=== PATIENT | male | born 1950 | race African-American/Black ===

== ENCOUNTER 2019-09-23 06:00 | Inpatient (IN) ==
[2019-09-23] MEDS ORDERED: DEXTROSE 50% 25 GM/50 ML VIAL IV PRN (10:36)
[2019-09-23] MEDS ORDERED: GLUCAGON 1 MG VIAL IM PRN (10:36)
[2019-09-23 11:26] LABS: Basophils % 0.5 % (0.0-0.8)
[2019-09-23 11:36] LABS: ABG HCO3 24.3 MMOL/L (20-26); ABG Oxygen Saturation 90.2 % (95-100); ABG PCO2 44.6 MM HG (35-48); ABG PH 7.369 (7.35-7.45); ABG PO2 61.5 MM HG (80-95); ABG TCO2 22.2 MMOL/L (23-27)
[2019-09-23 11:40] LABS: Eosinophils # 0.5 10*3/uL (0.0-0.87); Hemoglobin 14.4 GM/DL (14.0-18.0); Immature Granulocytes % 0.2 %; Immature Granulocytes Absolute 0.01 #; Lymphocytes # 1.2 10*3/uL (1.4-4.0); Lymphocytes % 21.9 % (21.2-54.2); Mean Corpuscular HGB Conc 30.6 GM/DL (32-36); Mean Corpuscular Volume 89.4 FL (87-102); Mean Platelet Volume 11.4 FL (9.6-12.0); Monocytes % 8.1 % (1.7-12.7); Neutrophils % 60.3 % (38.7-73.9); Platelet Count 197 T/CUMM (130-400); Red Blood Count 5.26 MC/CUMM (3.8-5.5); White Blood Count 5.6 T/CUMM (4-12)
[2019-09-23 11:49] LABS: Albumin 3.3 G/DL (3.4-5.0); Bilirubin,Total 0.4 MG/DL (0.2-1.0); Calcium 8.5 MG/DL (8.5-10.1); Osmolality,Calculated 283.3 MOS/KG (273-304); Total Protein 7.9 G/DL (6.4-8.3)
[2019-09-23] MEDS: CHLORHEXIDINE 4% SOLN 118 ML BOTTLE TOP SCH ×2 (15:42→20:45)
[2019-09-23] MEDS: CHLORHEXIDINE 0.12% ORAL RINSE 60 ML BOTTLE SWISH/SPIT SCH (21:39)
[2019-09-24] MEDS ORDERED: PAPAVERINE 60 MG/2 ML VIAL ONE (04:23)
[2019-09-24] MEDS ORDERED: VANCOMYCIN 1,000 MG VIAL ONE (04:24)
[2019-09-24] MEDS ORDERED: VANCOMYCIN 500 MG VIAL ONE (04:24)
[2019-09-24] MEDS ORDERED: CEFUROXIME INJ 1,500 MG in SYRINGE 1 EACH IV ONE ×2 (05:30→06:00)
[2019-09-24] MEDS ORDERED: NITROPRUSSIDE 50 MG/2 ML VIAL ONE (07:23)
[2019-09-24] MEDS ORDERED: CALCIUM CHLORIDE 1,000 MG/10 ML SYRINGE IV ONE (07:23)
[2019-09-24] MEDS ORDERED: PHENYLEPHRINE DRIP 40 MG/250 ML PREMIX IV ONE (07:23)
[2019-09-24] MEDS ORDERED: SODIUM BICARBONATE 50 MEQ/50 ML VIAL IV ONE ×2 (07:23→11:39)
[2019-09-24] MEDS ORDERED: POTASSIUM CHLORIDE RIDER 100 ML IV ONE (07:24)
[2019-09-24 07:36] LABS: ABG Base Excess 1.4 MMOL/L (-2.5-2.5); ABG HCO3 25.7 MMOL/L (20-26); ABG Oxygen Saturation 99.8 % (95-100); ABG PCO2 45.5 MM HG (35-48); ABG PH 7.381 (7.35-7.45); ABG TCO2 23.5 MMOL/L (23-27); Glucose Heart Surgery 107 MG/DL (74-106); Hematocrit Heart Surgery 41.1 PERCENT (42-52); Hemoglobin Heart Surgery 13.4 G/DL (14.0-18.0); Ionized Calcium Arterial 1.13 MMOL/L (1.21-1.46); PCO2 Patient Temp Arterial 45.5 MMHG; PH Patient Temp Arterial 7.381; Patient Temperature 37 CELCIUS; Potassium Heart/CVR 4.1 MMOL/L (3.5-5.1); Sodium Heart/CVR 137 MMOL/L (135-145)
[2019-09-24 08:16] LABS: Apearance,Urine CLEAR (Clear); Bacteria,Urine Occasional /HPF (Few); Bilirubin,Urine Negative (Negative); Blood, Urine Negative (Negative); Glucose,Urine (UA) Negative (Negative); Ketones,Urine Negative (Negative); Mucus,Urine Occasional /LPF (Occasional); Nitrite,Urine Negative (Negative); Protein,Urine Negative; RBC,Urine <1 /HPF (0-4); Urine Color Yellow (Yellow); Urine Specific Gravity 1.015 (1.001-1.035); Urine Urobilinogen < 2.0 EU/DL (0.2-1.0); WBC,Urine <1 /HPF (0-6)
[2019-09-24 09:22] LABS: PH Patient Temp Venous 7.521; Potassium Heart/CVR 4.1 MMOL/L (3.5-5.1); VBG Base Excess 2.3 MEQ/L (0-4); VBG HCO3 26.3 MEQ/L (24-28); VBG Oxygen Saturation 86.8 %; VBG PCO2 34.7 MMHG (41-51); VBG PH 7.476; VBG PO2 47.9 MMHG (17-40)
[2019-09-24] MEDS ORDERED: HEPARIN/NACL 0.9% 2 UNITS/ML 500 ML IV ONE (09:54)
[2019-09-24] MEDS ORDERED: PHENYLEPHRINE DRIP 20 MG/250 ML PREMIX IV ONE (09:54)
[2019-09-24] MEDS ORDERED: NITROGLYCERIN DRIP 50 MG/250 ML BOTTLE IV ONE (09:54)
[2019-09-24 09:55] LABS: Hemoglobin Heart Surgery 10.7 G/DL (14.0-18.0); PCO2 Patient Temp Venous 29.8 MM HG; PH Patient Temp Venous 7.518; PO2 Patient Temp Venous 40.2 MM HG; Potassium Heart/CVR 4.4 MMOL/L (3.5-5.1); VBG Base Excess 1.9 MEQ/L (0-4); VBG Oxygen Saturation 89.2 %; VBG PCO2 36.2 MMHG (41-51); VBG PH 7.458; VBG PO2 52.9 MMHG (17-40)
[2019-09-24 10:26] LABS: Hematocrit Heart Surgery 34.6 PERCENT (42-52); Hemoglobin Heart Surgery 11.2 G/DL (14.0-18.0); PCO2 Patient Temp Venous 30.3 MM HG; PH Patient Temp Venous 7.524; PO2 Patient Temp Venous 42.6 MM HG; Potassium Heart/CVR 4.4 MMOL/L (3.5-5.1); VBG Base Excess 2.8 MEQ/L (0-4); VBG HCO3 26.7 MEQ/L (24-28); VBG Oxygen Saturation 90.7 %; VBG PCO2 36.8 MMHG (41-51); VBG PH 7.464; VBG PO2 55.9 MMHG (17-40)
[2019-09-24 10:55] LABS: Hematocrit Heart Surgery 34.8 PERCENT (42-52); Hemoglobin Heart Surgery 11.3 G/DL (14.0-18.0); PCO2 Patient Temp Venous 36.5 MM HG; PH Patient Temp Venous 7.455; PO2 Patient Temp Venous 45.6 MM HG; Potassium Heart/CVR 4.7 MMOL/L (3.5-5.1); VBG HCO3 25.9 MEQ/L (24-28); VBG Oxygen Saturation 82.9 %; VBG PCO2 36.5 MMHG (41-51); VBG PH 7.455; VBG PO2 45.6 MMHG (17-40)
[2019-09-24] MEDS: CHLORHEXIDINE 4% SOLN 118 ML BOTTLE TOP SCH (11:32)
[2019-09-24] MEDS: CHLORHEXIDINE 0.12% ORAL RINSE 60 ML BOTTLE SWISH/SPIT SCH ×2 (11:32→21:22)
[2019-09-24] MEDS ORDERED: MANNITOL 100 GM/500 ML BAG IV ONE (11:38)
[2019-09-24] MEDS ORDERED: PROTAMINE SULFATE 250 MG/25 ML VIAL IV ONE (11:39)
[2019-09-24] MEDS ORDERED: HEPARIN 10,000 UNIT/10 ML VIAL ONE (11:39)
[2019-09-24] MEDS ORDERED: FUROSEMIDE 20 MG/2 ML VIAL ONE (11:39)
[2019-09-24] MEDS ORDERED: MAGNESIUM SULFATE 5 GM/10 ML VIAL IV ONE (11:39)
[2019-09-24] MEDS ORDERED: methylPREDNISolone SOD SUC 1,000 MG/8 ML VIAL ONE (11:39)
[2019-09-24] MEDS ORDERED: ALBUMIN 25% 25 GM/100 ML VIAL IV ONE (11:39)
[2019-09-24] MEDS ORDERED: LIDOCAINE 2% 5 ML VIAL ONE (11:39)
[2019-09-24] MEDS ORDERED: DEXTROSE 5% KCL 20 MEQ 20 MEQ/1,000 ML BAG IV ONE (11:39)
[2019-09-24 11:41] LABS: ABG Base Excess 0.5 MMOL/L (-2.5-2.5); ABG HCO3 24.9 MMOL/L (20-26); ABG PCO2 35.7 MM HG (35-48); ABG TCO2 21.5 MMOL/L (23-27); Glucose Heart Surgery 149 MG/DL (74-106); Hematocrit Heart Surgery 35.5 PERCENT (42-52); Hemoglobin Heart Surgery 11.5 G/DL (14.0-18.0); Ionized Calcium Arterial 1.25 MMOL/L (1.21-1.46); PCO2 Patient Temp Arterial 35.7 MMHG; Patient Temperature 37 CELCIUS; Potassium Heart/CVR 3.7 MMOL/L (3.5-5.1); Sodium Heart/CVR 136 MMOL/L (135-145)
[2019-09-24] MEDS ORDERED: ACETAMINOPHEN 650 MG SUPP RECTAL PRN (12:39)
[2019-09-24] MEDS ORDERED: VECURONIUM 10 MG VIAL IV PRN ×2 (12:39)
[2019-09-24] MEDS ORDERED: INSULIN REGULAR DRIP 100 ML IV SCH (12:39)
[2019-09-24] MEDS ORDERED: MAGNESIUM SULF RIDER 4 GM in PREMIX 1 EACH IV PRN (12:39)
[2019-09-24] MEDS ORDERED: MORPHINE 10 MG/1 ML VIAL IV PRN (12:39)
[2019-09-24] MEDS ORDERED: NITROPRUSSIDE 100 MG in DEXTROSE 5% 250 ML IV PRN (12:39)
[2019-09-24] MEDS ORDERED: MIDAZOLAM 10 MG/2 ML VIAL IV PRN (12:39)
[2019-09-24] MEDS ORDERED: MIDAZOLAM 2 MG/2 ML VIAL IV PRN (12:39)
[2019-09-24] MEDS ORDERED: POTASSIUM CHLORIDE RIDER 10 MEQ in PREMIX 1 EACH IV PRN (12:39)
[2019-09-24] MEDS ORDERED: DEXTROSE 10% 250 ML BAG IV PRN ×2 (12:39)
[2019-09-24] MEDS ORDERED: CHLORHEXIDINE 4% SOLN 118 ML BOTTLE TOP PRN (12:39)
[2019-09-24] MEDS ORDERED: SODIUM CHLORIDE 0.45% 1,000 ML IV SCH ×2 (12:39)
[2019-09-24] MEDS ORDERED: ONDANSETRON 4 MG/2 ML VIAL IV PRN (12:39)
[2019-09-24] MEDS ORDERED: POTASSIUM CHLORIDE RIDER 20 MEQ in PREMIX 1 EACH IV PRN (12:39)
[2019-09-24] MEDS ORDERED: CALCIUM CHLORIDE 1,000 MG/10 ML SYRINGE IV PRN (12:39)
[2019-09-24] MEDS ORDERED: MAGNESIUM SULF RIDER 2 GM in PREMIX 1 EACH IV PRN (12:39)
[2019-09-24] MEDS ORDERED: INSULIN REGULAR 100 UNIT/ML IV ONE (12:39)
[2019-09-24] MEDS ORDERED: LACTATED RINGERS 250 ML IV PRN (12:39)
[2019-09-24] MEDS ORDERED: INSULIN REGULAR 100 UNIT/ML IV PRN (12:39)
[2019-09-24 12:51] LABS: ABG Base Excess 1.4 MMOL/L (-2.5-2.5); ABG HCO3 25.6 MMOL/L (20-26); ABG Oxygen Saturation 99.6 % (95-100); ABG PCO2 38.8 MM HG (35-48); ABG PH 7.428 (7.35-7.45); ABG TCO2 22.3 MMOL/L (23-27); Glucose Heart Surgery 128 MG/DL (74-106); Hematocrit Heart Surgery 40.1 PERCENT (42-52); Potassium Heart/CVR 3.9 MMOL/L (3.5-5.1)
[2019-09-24 12:52] LABS: Basophils # 0.1 10*3/uL (0.0-0.2); Basophils % 0.4 % (0.0-0.8); Eosinophils # 0.2 10*3/uL (0.0-0.87); Eosinophils % 1.5 % (0.00-10.9); Hematocrit 40.9 VOL% (42.0-52.0); Hemoglobin 12.8 GM/DL (14.0-18.0); Immature Granulocytes % 0.6 %; Immature Granulocytes Absolute 0.08 #; Lymphocytes # 1.5 10*3/uL (1.4-4.0); Lymphocytes % 11.9 % (21.2-54.2); Mean Corpuscular HGB Conc 31.3 GM/DL (32-36); Mean Corpuscular Volume 87.8 FL (87-102); Mean Platelet Volume 11.4 FL (9.6-12.0); Monocytes % 4.4 % (1.7-12.7); Neutrophils % 81.2 % (38.7-73.9); Platelet Count 171 T/CUMM (130-400); Red Blood Count 4.66 MC/CUMM (3.8-5.5); Red Cell Distribution Width 14.9 % (9.3-17.3); White Blood Count 12.8 T/CUMM (4-12)
[2019-09-24 12:58] LABS: INR 1.1; Partial Thromboplastin Time 30.2 SECS (20.8-36.0)
[2019-09-24] MEDS: PHENYLEPHRINE DRIP 40 MG/250 ML PREMIX IV PRN ×2 (13:13→21:19)
[2019-09-24] MEDS ORDERED: CALCIUM CHLORIDE 1,000 MG/10 ML VIAL IV ONE (13:18)
[2019-09-24] MEDS ORDERED: MIDAZOLAM 10 MG/2 ML VIAL ONE (13:18)
[2019-09-24] MEDS ORDERED: SEVOFLURANE 1 UNIT/15 MINUTE INH ONE (13:18)
[2019-09-24] MEDS ORDERED: SUFentanil 250 MCG/5 ML AMP ONE (13:18)
[2019-09-24 13:19] LABS: CKMB % 4.2 %
[2019-09-24] MEDS ORDERED: VECURONIUM 10 MG VIAL IV ONE (13:19)
[2019-09-24] MEDS ORDERED: AMINOCAPROIC ACID 5,000 MG/20 ML VIAL ONE (13:19)
[2019-09-24] MEDS ORDERED: ETOMIDATE 40 MG/20 ML VIAL IV ONE (13:20)
[2019-09-24] MEDS ORDERED: MINERAL OIL/PETROLATUM OPH OINT 3.5 GM TUBE ONE (13:20)
[2019-09-24 13:21] LABS: Troponin I 9.09 NG/ML (0.00-0.045)
[2019-09-24 13:27] LABS: Bilirubin,Total 1.5 MG/DL (0.2-1.0); Calcium 10.4 MG/DL (8.5-10.1); Osmolality,Calculated 284.1 MOS/KG (273-304); Total Protein 6.6 G/DL (6.4-8.3)
[2019-09-24] MEDS: ALBUMIN 5% 12.5 GM in PREMIX 1 EACH IV PRN ×4 (14:09→20:41)
[2019-09-24 14:39] LABS: ABG Base Excess -1.4 MMOL/L (-2.5-2.5); ABG HCO3 23.2 MMOL/L (20-26); ABG Oxygen Saturation 96.5 % (95-100); ABG PCO2 46.8 MM HG (35-48); ABG PH 7.334 (7.35-7.45); ABG PO2 91.2 MM HG (80-95); ABG TCO2 22.2 MMOL/L (23-27); Glucose Heart Surgery 144 MG/DL (74-106); Hematocrit Heart Surgery 37.4 PERCENT (42-52); Hemoglobin Heart Surgery 12.1 G/DL (14.0-18.0); Potassium Heart/CVR 4.5 MMOL/L (3.5-5.1)
[2019-09-24] MEDS: LACTATED RINGERS 1,000 ML IV PRN ×2 (15:00→16:18)
[2019-09-24] MEDS: VANCOMYCIN INJ 1,750 MG in SODIUM CHLORIDE 0.9% 500 ML IV SCH (15:23)
[2019-09-24] MEDS: SODIUM CHLORIDE 0.9% 1,000 ML IV SCH ×2 (15:27→15:28)
[2019-09-24 17:33] LABS: ABG Base Excess -1.2 MMOL/L (-2.5-2.5); ABG HCO3 24.6 MMOL/L (20-26); ABG Oxygen Saturation 95.3 % (95-100); ABG PCO2 45.6 MM HG (35-48); ABG PO2 83.4 MM HG (80-95); Glucose Heart Surgery 140 MG/DL (74-106); Hemoglobin Heart Surgery 11.2 G/DL (14.0-18.0); Potassium Heart/CVR 4.9 MMOL/L (3.5-5.1)
[2019-09-24 19:34] LABS: ABG Base Excess -2.9 MMOL/L (-2.5-2.5); ABG HCO3 23.3 MMOL/L (20-26); ABG Oxygen Saturation 94.2 % (95-100); ABG PCO2 46.2 MM HG (35-48); ABG PO2 81.1 MM HG (80-95); ABG TCO2 24.7 MMOL/L (23-27); Glucose Heart Surgery 151 MG/DL (74-106); Hemoglobin Heart Surgery 11.4 G/DL (14.0-18.0); Potassium Heart/CVR 4.6 MMOL/L (3.5-5.1)
[2019-09-24] MEDS ORDERED: HALOPERIDOL 5 MG/ML AMP IV PRN (20:21)
[2019-09-24] MEDS: INSULIN REGULAR 100 UNIT/ML SUBCUT SCH (20:25)
[2019-09-24] MEDS: CEFUROXIME INJ 1,500 MG in SYRINGE 1 EACH IV SCH (21:22)
[2019-09-24 22:23] LABS: CKMB % 3.1 %
[2019-09-24 22:25] LABS: Troponin I 9.04 NG/ML (0.00-0.045)
[2019-09-25 00:27] LABS: ABG Base Excess -2.9 MMOL/L (-2.5-2.5); ABG HCO3 21.9 MMOL/L (20-26); ABG Oxygen Saturation 93.8 % (95-100); ABG PCO2 48.2 MM HG (35-48); ABG PO2 76.8 MM HG (80-95); ABG TCO2 21.8 MMOL/L (23-27); Glucose Heart Surgery 163 MG/DL (74-106); Hematocrit Heart Surgery 31.8 PERCENT (42-52); Hemoglobin Heart Surgery 10.3 G/DL (14.0-18.0); Potassium Heart/CVR 4.9 MMOL/L (3.5-5.1)
[2019-09-25] MEDS: INSULIN REGULAR 100 UNIT/ML SUBCUT SCH ×4 (01:11→12:23)
[2019-09-25] MEDS: VANCOMYCIN INJ 1,750 MG in SODIUM CHLORIDE 0.9% 500 ML IV SCH (02:43)
[2019-09-25 03:21] LABS: ABG Base Excess -2.6 MMOL/L (-2.5-2.5); ABG HCO3 22.2 MMOL/L (20-26); ABG Oxygen Saturation 94.4 % (95-100); ABG PCO2 49.2 MM HG (35-48); ABG PH 7.298 (7.35-7.45); ABG PO2 78.8 MM HG (80-95); ABG TCO2 22.2 MMOL/L (23-27); Glucose Heart Surgery 156 MG/DL (74-106); Hematocrit Heart Surgery 30.9 PERCENT (42-52); Potassium Heart/CVR 4.9 MMOL/L (3.5-5.1)
[2019-09-25 03:29] LABS: Basophils % 0.1 % (0.0-0.8); Hematocrit 31.9 VOL% (42.0-52.0); Hemoglobin 9.6 GM/DL (14.0-18.0); Immature Granulocytes % 0.3 %; Immature Granulocytes Absolute 0.03 #; Lymphocytes # 0.8 10*3/uL (1.4-4.0); Mean Corpuscular HGB Conc 30.1 GM/DL (32-36); Mean Corpuscular Volume 89.9 FL (87-102); Mean Platelet Volume 11.8 FL (9.6-12.0); Monocytes % 5.7 % (1.7-12.7); Neutrophils % 85.9 % (38.7-73.9); Platelet Count 146 T/CUMM (130-400); Red Blood Count 3.55 MC/CUMM (3.8-5.5); White Blood Count 10.6 T/CUMM (4-12)
[2019-09-25 03:44] LABS: Albumin 3.1 G/DL (3.4-5.0); Bilirubin,Direct 0.22 MG/DL (0.0-0.20); Bilirubin,Total 0.5 MG/DL (0.2-1.0); Calcium 8.2 MG/DL (8.5-10.1); Osmolality,Calculated 283.4 MOS/KG (273-304); Total Protein 6.3 G/DL (6.4-8.3)
[2019-09-25 04:07] LABS: CKMB % 2.4 %
[2019-09-25 04:09] LABS: Troponin I 7.22 NG/ML (0.00-0.045)
[2019-09-25 04:21] LABS: ABG Base Excess -1.7 MMOL/L (-2.5-2.5); ABG PCO2 38.5 MM HG (35-48); ABG PH 7.394 (7.35-7.45); ABG PO2 78.4 MM HG (80-95); ABG TCO2 24.2 MMOL/L (23-27); Glucose Heart Surgery 145 MG/DL (74-106); Potassium Heart/CVR 4.7 MMOL/L (3.5-5.1)
[2019-09-25] MEDS ORDERED: FUROSEMIDE 40 MG/4 ML VIAL IV ONE ×2 (05:06→23:15)
[2019-09-25 05:55] LABS: ABG Base Excess -1.6 MMOL/L (-2.5-2.5); ABG HCO3 24.3 MMOL/L (20-26); ABG Oxygen Saturation 94.9 % (95-100); ABG PCO2 46.2 MM HG (35-48); ABG PH 7.339 (7.35-7.45); ABG PO2 80.9 MM HG (80-95); ABG TCO2 25.7 MMOL/L (23-27); Glucose Heart Surgery 147 MG/DL (74-106); Hemoglobin Heart Surgery 10.8 G/DL (14.0-18.0); Potassium Heart/CVR 4.7 MMOL/L (3.5-5.1)
[2019-09-25] MEDS: MORPHINE 4 MG/1 ML VIAL IV PRN ×2 (06:20→12:12)
[2019-09-25 06:51] LABS: ABG Base Excess -1.1 MMOL/L (-2.5-2.5); ABG HCO3 25.1 MMOL/L (20-26); ABG Oxygen Saturation 90.2 % (95-100); ABG PCO2 48.5 MM HG (35-48); ABG PH 7.332 (7.35-7.45); ABG PO2 63.9 MM HG (80-95); ABG TCO2 26.6 MMOL/L (23-27); Glucose Heart Surgery 155 MG/DL (74-106); Hemoglobin Heart Surgery 10.9 G/DL (14.0-18.0); Potassium Heart/CVR 4.5 MMOL/L (3.5-5.1)
[2019-09-25] MEDS: PHENYLEPHRINE DRIP 40 MG/250 ML PREMIX IV PRN (07:37)
[2019-09-25] MEDS: CHLORHEXIDINE 0.12% ORAL RINSE 60 ML BOTTLE SWISH/SPIT SCH ×2 (08:05→22:29)
[2019-09-25] MEDS: CEFUROXIME INJ 1,500 MG in SYRINGE 1 EACH IV SCH ×2 (08:05→22:29)
[2019-09-25] MEDS: KETOROLAC 30 MG/1 ML VIAL IV PRN ×2 (09:46→16:23)
[2019-09-25] MEDS ORDERED: DEXTROSE 50% 25 GM/50 ML VIAL IV PRN (12:13)
[2019-09-25] MEDS ORDERED: ACETAMINOPHEN 325 MG TABLET PO PRN (12:13)
[2019-09-25] MEDS ORDERED: ZALEPLON 5 MG CAPSULE PO PRN (12:13)
[2019-09-25] MEDS ORDERED: ONDANSETRON 4 MG/2 ML VIAL IV PRN (12:13)
[2019-09-25] MEDS ORDERED: ALUMINUM/MAGNES/SIMETH MAX STR 30 ML UDCUP PO PRN (12:13)
[2019-09-25] MEDS ORDERED: GLUCAGON 1 MG VIAL IM PRN (12:13)
[2019-09-25] MEDS ORDERED: MAGNESIUM SULF RIDER 4 GM in PREMIX 1 EACH IV PRN (12:13)
[2019-09-25] MEDS ORDERED: MAGNESIUM SULF RIDER 2 GM in PREMIX 1 EACH IV PRN (12:13)
[2019-09-25] MEDS ORDERED: SODIUM CHLOR 0.45% KCL 20 MEQ 20 MEQ/1,000 ML BAG IV SCH (12:30)
[2019-09-25] MEDS: AMOXICILLIN 500 MG CAPSULE PO SCH ×2 (13:07→22:28)
[2019-09-25 13:52] LABS: CKMB % 1.4 %
[2019-09-25 13:53] LABS: Troponin I 5.09 NG/ML (0.00-0.045)
[2019-09-25] MEDS: oxyCODONE/ACETAMINOPHEN 5-325 MG TABLET PO PRN (22:28)
[2019-09-25] MEDS: ATORVASTATIN 20 MG TABLET PO SCH (22:29)
[2019-09-25] MEDS ORDERED: ALBUTEROL/IPRATROPIUM 3 ML NEB RESP TX ONE (23:40)
[2019-09-26] MEDS: KETOROLAC 30 MG/1 ML VIAL IV PRN (00:54)
[2019-09-26] MEDS ORDERED: METOPROLOL SUCCINATE XL 50 MG TABLET PO SCH (01:45)
[2019-09-26] MEDS: ALBUTEROL/IPRATROPIUM 3 ML NEB RESP TX SCH ×6 (04:00→22:25)
[2019-09-26 04:29] LABS: Basophils % 0.1 % (0.0-0.8); Eosinophils % 0.1 % (0.00-10.9); Hematocrit 29.8 VOL% (42.0-52.0); Hemoglobin 9.2 GM/DL (14.0-18.0); Immature Granulocytes % 0.5 %; Immature Granulocytes Absolute 0.05 #; Lymphocytes # 0.9 10*3/uL (1.4-4.0); Mean Corpuscular HGB Conc 30.9 GM/DL (32-36); Mean Corpuscular Volume 88.2 FL (87-102); Mean Platelet Volume 12.2 FL (9.6-12.0); Monocytes % 10.9 % (1.7-12.7); NRBC # 0.02 10*3/uL; Neutrophils % 78.4 % (38.7-73.9); Platelet Count 117 T/CUMM (130-400); Red Blood Count 3.38 MC/CUMM (3.8-5.5); Red Cell Distribution Width 15.5 % (9.3-17.3); White Blood Count 9.3 T/CUMM (4-12)
[2019-09-26 04:41] LABS: Albumin 3.2 G/DL (3.4-5.0); Bilirubin,Direct 0.15 MG/DL (0.0-0.20); Bilirubin,Total 0.5 MG/DL (0.2-1.0); Osmolality,Calculated 289.4 MOS/KG (273-304); Total Protein 6.5 G/DL (6.4-8.3)
[2019-09-26 04:54] LABS: Albumin 3.3 G/DL (3.4-5.0); Bilirubin,Direct 0.15 MG/DL (0.0-0.20); Bilirubin,Indirect 0.9 MG/DL (0.0-1.0); CKMB % 0.7 %; Total Protein 6.2 G/DL (6.4-8.3)
[2019-09-26 05:00] LABS: Troponin I 4.76 NG/ML (0.00-0.045)
[2019-09-26] MEDS ORDERED: FUROSEMIDE 40 MG/4 ML VIAL IV ONE (06:00)
[2019-09-26] MEDS: AMOXICILLIN 500 MG CAPSULE PO SCH ×3 (06:20→21:04)
[2019-09-26] MEDS ORDERED: KETOROLAC 15 MG/1 ML VIAL IV PRN (06:21)
[2019-09-26] MEDS: oxyCODONE/ACETAMINOPHEN 5-325 MG TABLET PO PRN ×3 (06:36→21:04)
[2019-09-26] MEDS: DOCUSATE SODIUM 100 MG CAPSULE PO SCH (09:25)
[2019-09-26] MEDS: allopurinoL 300 MG TABLET PO SCH (09:25)
[2019-09-26] MEDS: FERROUS SULFATE 325 MG TABLET PO SCH (09:25)
[2019-09-26] MEDS: ASPIRIN EC 81 MG TABLET PO SCH (09:25)
[2019-09-26] MEDS: PANTOPRAZOLE 40 MG TABLET PO SCH (09:25)
[2019-09-26] MEDS: CHLORHEXIDINE 0.12% ORAL RINSE 60 ML BOTTLE SWISH/SPIT SCH ×2 (09:26→21:04)
[2019-09-26] MEDS: ATORVASTATIN 20 MG TABLET PO SCH (21:03)
[2019-09-27] MEDS: oxyCODONE/ACETAMINOPHEN 5-325 MG TABLET PO PRN ×4 (01:30→20:31)
[2019-09-27] MEDS: ALBUTEROL/IPRATROPIUM 3 ML NEB RESP TX SCH ×6 (02:55→23:52)
[2019-09-27 03:44] LABS: Basophils % 0.1 % (0.0-0.8); Eosinophils # 0.1 10*3/uL (0.0-0.87); Eosinophils % 0.9 % (0.00-10.9); Hematocrit 29.4 VOL% (42.0-52.0); Immature Granulocytes % 0.6 %; Immature Granulocytes Absolute 0.06 #; Lymphocytes # 1.1 10*3/uL (1.4-4.0); Lymphocytes % 11.5 % (21.2-54.2); Mean Corpuscular HGB Conc 30.6 GM/DL (32-36); Mean Corpuscular Volume 89.4 FL (87-102); Mean Platelet Volume 11.6 FL (9.6-12.0); Monocytes % 10.1 % (1.7-12.7); NRBC # 0.02 10*3/uL; Neutrophils % 76.8 % (38.7-73.9); Platelet Count 123 T/CUMM (130-400); Red Blood Count 3.29 MC/CUMM (3.8-5.5); Red Cell Distribution Width 15.4 % (9.3-17.3); White Blood Count 9.4 T/CUMM (4-12)
[2019-09-27 04:09] LABS: Albumin 2.8 G/DL (3.4-5.0); Bilirubin,Direct 0.22 MG/DL (0.0-0.20); Bilirubin,Total 0.5 MG/DL (0.2-1.0); Calcium 8.3 MG/DL (8.5-10.1); Osmolality,Calculated 288.3 MOS/KG (273-304); Total Protein 6.8 G/DL (6.4-8.3)
[2019-09-27 04:37] LABS: Alanine Aminotransferase 45 U/L (16-61); Alkaline Phosphatase 76 U/L (45-117); Aspartate Amino Transferase 56 U/L (0-37); Bilirubin,Indirect 0.3 MG/DL (0.0-1.0); Total Protein 6.3 G/DL (6.4-8.3)
[2019-09-27] MEDS: AMOXICILLIN 500 MG CAPSULE PO SCH ×3 (05:55→21:39)
[2019-09-27] MEDS: FERROUS SULFATE 325 MG TABLET PO SCH (09:53)
[2019-09-27] MEDS: DOCUSATE SODIUM 100 MG CAPSULE PO SCH (09:53)
[2019-09-27] MEDS: allopurinoL 300 MG TABLET PO SCH (09:53)
[2019-09-27] MEDS: ASPIRIN EC 81 MG TABLET PO SCH (09:53)
[2019-09-27] MEDS: PANTOPRAZOLE 40 MG TABLET PO SCH (09:53)
[2019-09-27] MEDS: CHLORHEXIDINE 0.12% ORAL RINSE 60 ML BOTTLE SWISH/SPIT SCH ×2 (09:54→20:32)
[2019-09-27] MEDS: ATORVASTATIN 20 MG TABLET PO SCH (20:31)
[2019-09-28] MEDS: ALBUTEROL/IPRATROPIUM 3 ML NEB RESP TX SCH ×6 (03:42→22:35)
[2019-09-28] MEDS: AMOXICILLIN 500 MG CAPSULE PO SCH ×3 (05:31→21:23)
[2019-09-28] MEDS: PANTOPRAZOLE 40 MG TABLET PO SCH (08:39)
[2019-09-28] MEDS: DOCUSATE SODIUM 100 MG CAPSULE PO SCH (08:40)
[2019-09-28] MEDS: ASPIRIN EC 81 MG TABLET PO SCH (08:40)
[2019-09-28] MEDS: MAGNESIUM HYDROXIDE SUSP 30 ML UDCUP PO PRN (08:40)
[2019-09-28] MEDS: allopurinoL 300 MG TABLET PO SCH (08:40)
[2019-09-28] MEDS: FERROUS SULFATE 325 MG TABLET PO SCH (08:40)
[2019-09-28] MEDS: oxyCODONE/ACETAMINOPHEN 5-325 MG TABLET PO PRN ×2 (08:40→17:09)
[2019-09-28] MEDS: CHLORHEXIDINE 0.12% ORAL RINSE 60 ML BOTTLE SWISH/SPIT SCH ×2 (08:42→21:24)
[2019-09-28] MEDS: ATORVASTATIN 20 MG TABLET PO SCH (21:23)
[2019-09-28] MEDS ORDERED: METOPROLOL TARTRATE 5 MG/5 ML VIAL IV ONE (23:40)
[2019-09-29] MEDS: ALBUTEROL/IPRATROPIUM 3 ML NEB RESP TX SCH ×5 (02:55→18:57)
[2019-09-29 05:09] LABS: Basophils % 0.1 % (0.0-0.8); Eosinophils # 0.4 10*3/uL (0.0-0.87); Hematocrit 29.6 VOL% (42.0-52.0); Hemoglobin 8.9 GM/DL (14.0-18.0); Immature Granulocytes % 0.5 %; Immature Granulocytes Absolute 0.04 #; Lymphocytes # 1.1 10*3/uL (1.4-4.0); Lymphocytes % 14.2 % (21.2-54.2); Mean Corpuscular HGB Conc 30.1 GM/DL (32-36); Mean Corpuscular Volume 89.7 FL (87-102); Mean Platelet Volume 10.9 FL (9.6-12.0); Monocytes % 10.2 % (1.7-12.7); NRBC # 0.05 10*3/uL; Platelet Count 186 T/CUMM (130-400); Red Cell Distribution Width 15.2 % (9.3-17.3); White Blood Count 7.7 T/CUMM (4-12)
[2019-09-29 05:26] LABS: Alanine Aminotransferase 76 U/L (16-61); Albumin 2.8 G/DL (3.4-5.0); Alkaline Phosphatase 107 U/L (45-117); Aspartate Amino Transferase 78 U/L (0-37); Bilirubin,Indirect 0.5 MG/DL (0.0-1.0); Blood Urea Nitrogen 19 MG/DL (7-18); Calcium 8.6 MG/DL (8.5-10.1); Estimated Glom Filtration Rate 138 ML/MIN; Glucose 99 MG/DL (74-106); Osmolality,Calculated 284.1 MOS/KG (273-304); Total Protein 7.2 G/DL (6.4-8.3)
[2019-09-29 05:30] LABS: Troponin I 0.364 NG/ML (0.00-0.045)
[2019-09-29] MEDS: AMOXICILLIN 500 MG CAPSULE PO SCH ×3 (05:38→21:03)
[2019-09-29] MEDS: ASPIRIN EC 81 MG TABLET PO SCH (08:36)
[2019-09-29] MEDS: DOCUSATE SODIUM 100 MG CAPSULE PO SCH (08:37)
[2019-09-29] MEDS: FERROUS SULFATE 325 MG TABLET PO SCH (08:37)
[2019-09-29] MEDS: PANTOPRAZOLE 40 MG TABLET PO SCH (08:38)
[2019-09-29] MEDS: allopurinoL 300 MG TABLET PO SCH (08:40)
[2019-09-29] MEDS: carvediloL 3.125 MG TABLET PO SCH ×2 (08:41→17:04)
[2019-09-29] MEDS: CHLORHEXIDINE 0.12% ORAL RINSE 60 ML BOTTLE SWISH/SPIT SCH ×2 (09:34→21:05)
[2019-09-29] MEDS: oxyCODONE/ACETAMINOPHEN 5-325 MG TABLET PO PRN ×2 (13:19→17:03)
[2019-09-29] MEDS: ATORVASTATIN 20 MG TABLET PO SCH (21:03)
[2019-09-30] MEDS: ALBUTEROL/IPRATROPIUM 3 ML NEB RESP TX SCH ×7 (00:21→21:21)
[2019-09-30] MEDS: oxyCODONE/ACETAMINOPHEN 5-325 MG TABLET PO PRN (00:43)
[2019-09-30 05:52] LABS: Basophils % 0.4 % (0.0-0.8); Eosinophils # 0.5 10*3/uL (0.0-0.87); Eosinophils % 6.7 % (0.00-10.9); Hematocrit 30.3 VOL% (42.0-52.0); Immature Granulocytes % 0.7 %; Immature Granulocytes Absolute 0.05 #; Lymphocytes # 1.3 10*3/uL (1.4-4.0); Lymphocytes % 17.6 % (21.2-54.2); Mean Corpuscular HGB Conc 29.7 GM/DL (32-36); Mean Corpuscular Volume 90.2 FL (87-102); Mean Platelet Volume 11.1 FL (9.6-12.0); Monocytes % 9.9 % (1.7-12.7); NRBC # 0.05 10*3/uL; Neutrophils % 64.7 % (38.7-73.9); Platelet Count 217 T/CUMM (130-400); Red Blood Count 3.36 MC/CUMM (3.8-5.5); Red Cell Distribution Width 15.1 % (9.3-17.3); White Blood Count 7.3 T/CUMM (4-12)
[2019-09-30] MEDS: AMOXICILLIN 500 MG CAPSULE PO SCH ×3 (06:03→22:17)
[2019-09-30 06:30] LABS: Alanine Aminotransferase 85 U/L (16-61); Albumin 2.7 G/DL (3.4-5.0); Alkaline Phosphatase 122 U/L (45-117); Aspartate Amino Transferase 73 U/L (0-37); Bilirubin,Indirect 1.3 MG/DL (0.0-1.0); Blood Urea Nitrogen 20 MG/DL (7-18); Calcium 8.3 MG/DL (8.5-10.1); Estimated Glom Filtration Rate 114 ML/MIN; Glucose 91 MG/DL (74-106); Osmolality,Calculated 279.5 MOS/KG (273-304); Total Protein 7.2 G/DL (6.4-8.3); Troponin I 0.172 NG/ML (0.00-0.045)
[2019-09-30] MEDS: ASPIRIN EC 81 MG TABLET PO SCH (08:38)
[2019-09-30] MEDS: PANTOPRAZOLE 40 MG TABLET PO SCH (08:38)
[2019-09-30] MEDS: FERROUS SULFATE 325 MG TABLET PO SCH (08:38)
[2019-09-30] MEDS: allopurinoL 300 MG TABLET PO SCH (08:38)
[2019-09-30] MEDS: carvediloL 3.125 MG TABLET PO SCH ×2 (08:39→16:30)
[2019-09-30] MEDS: DOCUSATE SODIUM 100 MG CAPSULE PO SCH ×3 (08:39→22:17)
[2019-09-30] MEDS: CHLORHEXIDINE 0.12% ORAL RINSE 60 ML BOTTLE SWISH/SPIT SCH ×2 (08:40→22:17)
[2019-09-30] MEDS: POLYETHYLENE GLYCOL POWDER 17 GM PACK PO SCH (09:07)
[2019-09-30] MEDS: POTASSIUM CHLORIDE 20 MEQ TABLET PO PRN (22:17)
[2019-09-30] MEDS: ATORVASTATIN 20 MG TABLET PO SCH (22:17)
[2019-10-01] MEDS: POTASSIUM CHLORIDE 20 MEQ TABLET PO PRN (00:26)
[2019-10-01] MEDS: ALBUTEROL/IPRATROPIUM 3 ML NEB RESP TX SCH ×6 (00:55→20:13)
[2019-10-01] MEDS: AMOXICILLIN 500 MG CAPSULE PO SCH ×3 (05:50→22:08)
[2019-10-01] MEDS: oxyCODONE/ACETAMINOPHEN 5-325 MG TABLET PO PRN (05:50)
[2019-10-01 06:05] LABS: Basophils % 0.4 % (0.0-0.8); Eosinophils # 0.4 10*3/uL (0.0-0.87); Eosinophils % 4.8 % (0.00-10.9); Hematocrit 30.6 VOL% (42.0-52.0); Hemoglobin 9.1 GM/DL (14.0-18.0); Immature Granulocytes Absolute 0.08 #; Lymphocytes # 1.3 10*3/uL (1.4-4.0); Lymphocytes % 15.7 % (21.2-54.2); Mean Corpuscular HGB Conc 29.7 GM/DL (32-36); Monocytes % 8.8 % (1.7-12.7); NRBC # 0.08 10*3/uL; Neutrophils % 69.3 % (38.7-73.9); Platelet Count 255 T/CUMM (130-400); Red Cell Distribution Width 14.9 % (9.3-17.3); White Blood Count 8.4 T/CUMM (4-12)
[2019-10-01 06:33] LABS: Albumin 2.8 G/DL (3.4-5.0); Bilirubin,Total 0.7 MG/DL (0.2-1.0); Calcium 8.7 MG/DL (8.5-10.1); Osmolality,Calculated 268.2 MOS/KG (273-304); Total Protein 7.3 G/DL (6.4-8.3)
[2019-10-01] MEDS: POLYETHYLENE GLYCOL POWDER 17 GM PACK PO SCH (09:44)
[2019-10-01] MEDS: CHLORHEXIDINE 0.12% ORAL RINSE 60 ML BOTTLE SWISH/SPIT SCH ×2 (09:45→22:08)
[2019-10-01] MEDS: FERROUS SULFATE 325 MG TABLET PO SCH (09:46)
[2019-10-01] MEDS: PANTOPRAZOLE 40 MG TABLET PO SCH (09:47)
[2019-10-01] MEDS: ASPIRIN EC 81 MG TABLET PO SCH (09:47)
[2019-10-01] MEDS: allopurinoL 300 MG TABLET PO SCH (09:47)
[2019-10-01] MEDS: DOCUSATE SODIUM 100 MG CAPSULE PO SCH ×2 (09:47→22:08)
[2019-10-01] MEDS: carvediloL 3.125 MG TABLET PO SCH ×2 (09:55→17:15)
[2019-10-01] MEDS: LACTULOSE 20 GM/30 ML UDCUP PO PRN (14:24)
[2019-10-01] MEDS: ATORVASTATIN 20 MG TABLET PO SCH (22:08)
[2019-10-02] MEDS: ALBUTEROL/IPRATROPIUM 3 ML NEB RESP TX SCH ×6 (00:40→19:45)
[2019-10-02 05:00] LABS: Basophils # 0.1 10*3/uL (0.0-0.2); Basophils % 0.5 % (0.0-0.8); Eosinophils # 0.4 10*3/uL (0.0-0.87); Eosinophils % 3.6 % (0.00-10.9); Hematocrit 31.5 VOL% (42.0-52.0); Hemoglobin 9.4 GM/DL (14.0-18.0); Immature Granulocytes % 1.7 %; Immature Granulocytes Absolute 0.17 #; Lymphocytes # 1.4 10*3/uL (1.4-4.0); Lymphocytes % 13.7 % (21.2-54.2); Mean Corpuscular HGB Conc 29.8 GM/DL (32-36); Mean Corpuscular Volume 89.5 FL (87-102); Monocytes % 8.2 % (1.7-12.7); NRBC # 0.13 10*3/uL; Neutrophils % 72.3 % (38.7-73.9); Platelet Count 272 T/CUMM (130-400); Red Blood Count 3.52 MC/CUMM (3.8-5.5); Red Cell Distribution Width 15.2 % (9.3-17.3); White Blood Count 10.2 T/CUMM (4-12)
[2019-10-02 05:21] LABS: Albumin 2.8 G/DL (3.4-5.0); Bilirubin,Total 1.4 MG/DL (0.2-1.0); Calcium 8.9 MG/DL (8.5-10.1); Osmolality,Calculated 272.1 MOS/KG (273-304); Total Protein 7.4 G/DL (6.4-8.3)
[2019-10-02] MEDS: AMOXICILLIN 500 MG CAPSULE PO SCH ×3 (05:47→21:45)
[2019-10-02] MEDS: FERROUS SULFATE 325 MG TABLET PO SCH (09:06)
[2019-10-02] MEDS: MAGNESIUM HYDROXIDE SUSP 30 ML UDCUP PO PRN (09:06)
[2019-10-02] MEDS: POLYETHYLENE GLYCOL POWDER 17 GM PACK PO SCH (09:06)
[2019-10-02] MEDS: ASPIRIN EC 81 MG TABLET PO SCH (09:06)
[2019-10-02] MEDS: allopurinoL 300 MG TABLET PO SCH (09:06)
[2019-10-02] MEDS: PANTOPRAZOLE 40 MG TABLET PO SCH (09:06)
[2019-10-02] MEDS: LACTULOSE 20 GM/30 ML UDCUP PO PRN (09:06)
[2019-10-02] MEDS: carvediloL 3.125 MG TABLET PO SCH ×2 (09:06→16:50)
[2019-10-02] MEDS: DOCUSATE SODIUM 100 MG CAPSULE PO SCH ×2 (09:07→21:45)
[2019-10-02] MEDS: CHLORHEXIDINE 0.12% ORAL RINSE 60 ML BOTTLE SWISH/SPIT SCH ×2 (09:10→21:46)
[2019-10-02] MEDS ORDERED: FUROSEMIDE 40 MG/4 ML VIAL IV ONE (09:25)
[2019-10-02] MEDS: ATORVASTATIN 20 MG TABLET PO SCH (21:45)
[2019-10-03] MEDS: ALBUTEROL/IPRATROPIUM 3 ML NEB RESP TX SCH ×6 (00:12→18:58)
[2019-10-03] MEDS: AMOXICILLIN 500 MG CAPSULE PO SCH ×3 (05:05→21:52)
[2019-10-03 05:51] LABS: Basophils # 0.1 10*3/uL (0.0-0.2); Basophils % 0.5 % (0.0-0.8); Eosinophils # 0.4 10*3/uL (0.0-0.87); Eosinophils % 4.1 % (0.00-10.9); Hematocrit 31.6 VOL% (42.0-52.0); Hemoglobin 9.3 GM/DL (14.0-18.0); Immature Granulocytes % 1.2 %; Immature Granulocytes Absolute 0.12 #; Lymphocytes # 1.2 10*3/uL (1.4-4.0); Lymphocytes % 11.8 % (21.2-54.2); Mean Corpuscular HGB Conc 29.4 GM/DL (32-36); Mean Corpuscular Volume 90.5 FL (87-102); Mean Platelet Volume 11.1 FL (9.6-12.0); Monocytes % 9.1 % (1.7-12.7); Neutrophils % 73.3 % (38.7-73.9); Platelet Count 246 T/CUMM (130-400); Red Blood Count 3.49 MC/CUMM (3.8-5.5); Red Cell Distribution Width 15.2 % (9.3-17.3); White Blood Count 10.1 T/CUMM (4-12)
[2019-10-03] MEDS: carvediloL 3.125 MG TABLET PO SCH ×2 (09:28→16:28)
[2019-10-03] MEDS: allopurinoL 300 MG TABLET PO SCH (09:28)
[2019-10-03] MEDS: ASPIRIN EC 81 MG TABLET PO SCH (09:28)
[2019-10-03] MEDS: DOCUSATE SODIUM 100 MG CAPSULE PO SCH ×2 (09:29→21:52)
[2019-10-03] MEDS: CHLORHEXIDINE 0.12% ORAL RINSE 60 ML BOTTLE SWISH/SPIT SCH ×2 (09:29→21:52)
[2019-10-03] MEDS: FERROUS SULFATE 325 MG TABLET PO SCH (09:29)
[2019-10-03] MEDS: POLYETHYLENE GLYCOL POWDER 17 GM PACK PO SCH (09:29)
[2019-10-03] MEDS: PANTOPRAZOLE 40 MG TABLET PO SCH (09:29)
[2019-10-03] MEDS: oxyCODONE/ACETAMINOPHEN 5-325 MG TABLET PO PRN (13:57)
[2019-10-03] MEDS: ATORVASTATIN 20 MG TABLET PO SCH (21:52)
[2019-10-04] MEDS: ALBUTEROL/IPRATROPIUM 3 ML NEB RESP TX SCH ×6 (00:52→19:31)
[2019-10-04 05:42] LABS: Basophils % 0.3 % (0.0-0.8); Eosinophils # 0.3 10*3/uL (0.0-0.87); Eosinophils % 3.3 % (0.00-10.9); Hematocrit 30.9 VOL% (42.0-52.0); Hemoglobin 9.2 GM/DL (14.0-18.0); Immature Granulocytes % 0.9 %; Immature Granulocytes Absolute 0.09 #; Lymphocytes # 1.1 10*3/uL (1.4-4.0); Lymphocytes % 11.4 % (21.2-54.2); Mean Corpuscular HGB Conc 29.8 GM/DL (32-36); Mean Platelet Volume 11.1 FL (9.6-12.0); Monocytes % 8.7 % (1.7-12.7); NRBC # 0.08 10*3/uL; Neutrophils % 75.4 % (38.7-73.9); Platelet Count 281 T/CUMM (130-400); Red Blood Count 3.51 MC/CUMM (3.8-5.5); Red Cell Distribution Width 15.1 % (9.3-17.3)
[2019-10-04 05:55] LABS: Calcium 8.7 MG/DL (8.5-10.1); Osmolality,Calculated 269.4 MOS/KG (273-304)
[2019-10-04] MEDS: AMOXICILLIN 500 MG CAPSULE PO SCH ×3 (06:12→21:20)
[2019-10-04] MEDS: ASPIRIN EC 81 MG TABLET PO SCH (08:41)
[2019-10-04] MEDS: allopurinoL 300 MG TABLET PO SCH (08:41)
[2019-10-04] MEDS: carvediloL 3.125 MG TABLET PO SCH ×2 (08:41→16:57)
[2019-10-04] MEDS: PANTOPRAZOLE 40 MG TABLET PO SCH (08:41)
[2019-10-04] MEDS: FERROUS SULFATE 325 MG TABLET PO SCH (08:41)
[2019-10-04] MEDS: DOCUSATE SODIUM 100 MG CAPSULE PO SCH ×2 (08:42→21:20)
[2019-10-04] MEDS: POLYETHYLENE GLYCOL POWDER 17 GM PACK PO SCH (08:42)
[2019-10-04] MEDS: CHLORHEXIDINE 0.12% ORAL RINSE 60 ML BOTTLE SWISH/SPIT SCH ×2 (08:43→21:20)
[2019-10-04] MEDS: oxyCODONE/ACETAMINOPHEN 5-325 MG TABLET PO PRN (12:48)
[2019-10-04] MEDS: ATORVASTATIN 20 MG TABLET PO SCH (21:20)
[2019-10-05] MEDS: ALBUTEROL/IPRATROPIUM 3 ML NEB RESP TX SCH ×7 (00:48→23:45)
[2019-10-05 05:11] LABS: Basophils % 0.3 % (0.0-0.8); Eosinophils # 0.3 10*3/uL (0.0-0.87); Eosinophils % 2.3 % (0.00-10.9); Hematocrit 31.1 VOL% (42.0-52.0); Hemoglobin 9.3 GM/DL (14.0-18.0); Immature Granulocytes % 0.6 %; Immature Granulocytes Absolute 0.08 #; Lymphocytes # 1.3 10*3/uL (1.4-4.0); Lymphocytes % 9.8 % (21.2-54.2); Mean Corpuscular HGB Conc 29.9 GM/DL (32-36); Mean Corpuscular Volume 87.6 FL (87-102); Mean Platelet Volume 11.2 FL (9.6-12.0); Monocytes % 8.6 % (1.7-12.7); Neutrophils % 78.4 % (38.7-73.9); Platelet Count 294 T/CUMM (130-400); Red Blood Count 3.55 MC/CUMM (3.8-5.5); Red Cell Distribution Width 15.2 % (9.3-17.3); White Blood Count 12.8 T/CUMM (4-12)
[2019-10-05] MEDS: AMOXICILLIN 500 MG CAPSULE PO SCH ×3 (05:13→20:59)
[2019-10-05 05:26] LABS: Calcium 8.6 MG/DL (8.5-10.1); Osmolality,Calculated 270.2 MOS/KG (273-304)
[2019-10-05] MEDS: DOCUSATE SODIUM 100 MG CAPSULE PO SCH ×2 (09:51→20:49)
[2019-10-05] MEDS: allopurinoL 300 MG TABLET PO SCH (09:51)
[2019-10-05] MEDS: PANTOPRAZOLE 40 MG TABLET PO SCH (09:51)
[2019-10-05] MEDS: ASPIRIN EC 81 MG TABLET PO SCH (09:51)
[2019-10-05] MEDS: FERROUS SULFATE 325 MG TABLET PO SCH (09:51)
[2019-10-05] MEDS: POLYETHYLENE GLYCOL POWDER 17 GM PACK PO SCH (09:51)
[2019-10-05] MEDS: carvediloL 3.125 MG TABLET PO SCH ×2 (09:52→16:23)
[2019-10-05] MEDS: CHLORHEXIDINE 0.12% ORAL RINSE 60 ML BOTTLE SWISH/SPIT SCH ×2 (09:54→20:50)
[2019-10-05] MEDS: ATORVASTATIN 20 MG TABLET PO SCH (20:49)
[2019-10-06] MEDS: oxyCODONE/ACETAMINOPHEN 5-325 MG TABLET PO PRN ×2 (03:10→15:37)
[2019-10-06] MEDS: ALBUTEROL/IPRATROPIUM 3 ML NEB RESP TX SCH ×5 (03:20→20:27)
[2019-10-06 05:01] LABS: Basophils % 0.4 % (0.0-0.8); Eosinophils # 0.3 10*3/uL (0.0-0.87); Eosinophils % 3.2 % (0.00-10.9); Hematocrit 29.3 VOL% (42.0-52.0); Hemoglobin 8.5 GM/DL (14.0-18.0); Immature Granulocytes % 0.6 %; Immature Granulocytes Absolute 0.06 #; Lymphocytes % 10.4 % (21.2-54.2); Mean Corpuscular Volume 89.6 FL (87-102); Mean Platelet Volume 10.8 FL (9.6-12.0); Monocytes % 8.8 % (1.7-12.7); NRBC # 0.04 10*3/uL; Neutrophils % 76.6 % (38.7-73.9); Platelet Count 252 T/CUMM (130-400); Red Blood Count 3.27 MC/CUMM (3.8-5.5); Red Cell Distribution Width 15.2 % (9.3-17.3); White Blood Count 9.9 T/CUMM (4-12)
[2019-10-06 05:41] LABS: Albumin 2.6 G/DL (3.4-5.0); Bilirubin,Total 1.1 MG/DL (0.2-1.0); Calcium 8.4 MG/DL (8.5-10.1); Osmolality,Calculated 270.2 MOS/KG (273-304); Total Protein 7.2 G/DL (6.4-8.3)
[2019-10-06] MEDS: AMOXICILLIN 500 MG CAPSULE PO SCH ×3 (05:42→21:23)
[2019-10-06] MEDS: allopurinoL 300 MG TABLET PO SCH (08:31)
[2019-10-06] MEDS: DOCUSATE SODIUM 100 MG CAPSULE PO SCH ×2 (08:31→21:23)
[2019-10-06] MEDS: POTASSIUM CHLORIDE 20 MEQ TABLET PO PRN (08:31)
[2019-10-06] MEDS: POLYETHYLENE GLYCOL POWDER 17 GM PACK PO SCH (08:31)
[2019-10-06] MEDS: PANTOPRAZOLE 40 MG TABLET PO SCH (08:31)
[2019-10-06] MEDS: CHLORHEXIDINE 0.12% ORAL RINSE 60 ML BOTTLE SWISH/SPIT SCH ×2 (08:31→21:24)
[2019-10-06] MEDS: carvediloL 3.125 MG TABLET PO SCH ×2 (08:31→16:35)
[2019-10-06] MEDS: FERROUS SULFATE 325 MG TABLET PO SCH (08:31)
[2019-10-06] MEDS: ASPIRIN EC 81 MG TABLET PO SCH (08:31)
[2019-10-06] MEDS: BUDESONIDE/FORMOTEROL 160-4.5 INHALER 6 GM INH SCH ×2 (09:54→21:29)
[2019-10-06] MEDS ORDERED: FUROSEMIDE 40 MG/4 ML VIAL IV ONE (14:53)
[2019-10-06] MEDS: ATORVASTATIN 20 MG TABLET PO SCH (21:23)
[2019-10-07] MEDS: ALBUTEROL/IPRATROPIUM 3 ML NEB RESP TX SCH ×6 (00:19→19:17)
[2019-10-07] MEDS: AMOXICILLIN 500 MG CAPSULE PO SCH ×3 (05:36→21:05)
[2019-10-07 05:49] LABS: Basophils % 0.4 % (0.0-0.8); Eosinophils # 0.4 10*3/uL (0.0-0.87); Eosinophils % 5.3 % (0.00-10.9); Hematocrit 29.3 VOL% (42.0-52.0); Hemoglobin 8.7 GM/DL (14.0-18.0); Immature Granulocytes % 0.5 %; Immature Granulocytes Absolute 0.04 #; Lymphocytes # 0.8 10*3/uL (1.4-4.0); Lymphocytes % 9.8 % (21.2-54.2); Mean Corpuscular HGB Conc 29.7 GM/DL (32-36); Mean Corpuscular Volume 88.3 FL (87-102); Mean Platelet Volume 11.2 FL (9.6-12.0); Monocytes % 8.8 % (1.7-12.7); NRBC # 0.03 10*3/uL; Neutrophils % 75.2 % (38.7-73.9); Platelet Count 254 T/CUMM (130-400); Red Blood Count 3.32 MC/CUMM (3.8-5.5); Red Cell Distribution Width 15.1 % (9.3-17.3); White Blood Count 8.1 T/CUMM (4-12)
[2019-10-07 06:08] LABS: Calcium 8.5 MG/DL (8.5-10.1); Osmolality,Calculated 265.5 MOS/KG (273-304)
[2019-10-07] MEDS: CHLORHEXIDINE 0.12% ORAL RINSE 60 ML BOTTLE SWISH/SPIT SCH ×2 (08:30→21:28)
[2019-10-07] MEDS: POLYETHYLENE GLYCOL POWDER 17 GM PACK PO SCH (08:30)
[2019-10-07] MEDS: FERROUS SULFATE 325 MG TABLET PO SCH (08:30)
[2019-10-07] MEDS: POTASSIUM CHLORIDE 20 MEQ TABLET PO PRN (08:30)
[2019-10-07] MEDS: PANTOPRAZOLE 40 MG TABLET PO SCH (08:30)
[2019-10-07] MEDS: ASPIRIN EC 81 MG TABLET PO SCH (08:30)
[2019-10-07] MEDS: allopurinoL 300 MG TABLET PO SCH (08:30)
[2019-10-07] MEDS: DOCUSATE SODIUM 100 MG CAPSULE PO SCH ×2 (08:30→21:28)
[2019-10-07] MEDS: carvediloL 3.125 MG TABLET PO SCH ×2 (08:31→16:50)
[2019-10-07] MEDS: BUDESONIDE/FORMOTEROL 160-4.5 INHALER 6 GM INH SCH ×2 (08:31→21:29)
[2019-10-07] MEDS ORDERED: CLORAZEPATE 3.75 MG TABLET PO PRN (18:08)
[2019-10-07] MEDS: ATORVASTATIN 20 MG TABLET PO SCH (21:06)
[2019-10-08] MEDS: ALBUTEROL/IPRATROPIUM 3 ML NEB RESP TX SCH ×7 (00:31→22:46)
[2019-10-08] MEDS: AMOXICILLIN 500 MG CAPSULE PO SCH ×3 (05:48→21:12)
[2019-10-08 05:55] LABS: Osmolality,Calculated 266.5 MOS/KG (273-304)
[2019-10-08 06:18] LABS: Basophils % 0.5 % (0.0-0.8); Eosinophils # 0.4 10*3/uL (0.0-0.87); Eosinophils % 5.5 % (0.00-10.9); Hematocrit 30.8 VOL% (42.0-52.0); Hemoglobin 9.3 GM/DL (14.0-18.0); Immature Granulocytes % 0.4 %; Immature Granulocytes Absolute 0.03 #; Lymphocytes # 1.3 10*3/uL (1.4-4.0); Lymphocytes % 16.4 % (21.2-54.2); Mean Corpuscular HGB Conc 30.2 GM/DL (32-36); Mean Corpuscular Volume 86.8 FL (87-102); Mean Platelet Volume 10.5 FL (9.6-12.0); NRBC # 0.05 10*3/uL; Neutrophils % 68.2 % (38.7-73.9); Platelet Count 268 T/CUMM (130-400); Red Blood Count 3.55 MC/CUMM (3.8-5.5); Red Cell Distribution Width 14.9 % (9.3-17.3); White Blood Count 7.9 T/CUMM (4-12)
[2019-10-08] MEDS: POLYETHYLENE GLYCOL POWDER 17 GM PACK PO SCH (08:58)
[2019-10-08] MEDS: allopurinoL 300 MG TABLET PO SCH (08:59)
[2019-10-08] MEDS: DOCUSATE SODIUM 100 MG CAPSULE PO SCH ×2 (08:59→20:31)
[2019-10-08] MEDS: carvediloL 3.125 MG TABLET PO SCH ×2 (08:59→17:00)
[2019-10-08] MEDS: ASPIRIN EC 81 MG TABLET PO SCH (08:59)
[2019-10-08] MEDS: PANTOPRAZOLE 40 MG TABLET PO SCH (08:59)
[2019-10-08] MEDS: FERROUS SULFATE 325 MG TABLET PO SCH (08:59)
[2019-10-08] MEDS: BUDESONIDE/FORMOTEROL 160-4.5 INHALER 6 GM INH SCH ×2 (09:00→20:30)
[2019-10-08] MEDS: CHLORHEXIDINE 0.12% ORAL RINSE 60 ML BOTTLE SWISH/SPIT SCH ×2 (09:00→20:33)
[2019-10-08] MEDS ORDERED: FUROSEMIDE 40 MG/4 ML VIAL IV ONE (14:56)
[2019-10-08] MEDS: ATORVASTATIN 20 MG TABLET PO SCH (20:31)
[2019-10-09] MEDS: ALBUTEROL/IPRATROPIUM 3 ML NEB RESP TX SCH ×3 (03:10→11:33)
[2019-10-09] MEDS: AMOXICILLIN 500 MG CAPSULE PO SCH (05:21)
[2019-10-09] MEDS: ASPIRIN EC 81 MG TABLET PO SCH (08:35)
[2019-10-09] MEDS: carvediloL 3.125 MG TABLET PO SCH (08:35)
[2019-10-09] MEDS: DOCUSATE SODIUM 100 MG CAPSULE PO SCH (08:35)
[2019-10-09] MEDS: CHLORHEXIDINE 0.12% ORAL RINSE 60 ML BOTTLE SWISH/SPIT SCH (08:35)
[2019-10-09] MEDS: PANTOPRAZOLE 40 MG TABLET PO SCH (08:35)
[2019-10-09] MEDS: allopurinoL 300 MG TABLET PO SCH (08:35)
[2019-10-09] MEDS: POLYETHYLENE GLYCOL POWDER 17 GM PACK PO SCH (08:35)
[2019-10-09] MEDS: FERROUS SULFATE 325 MG TABLET PO SCH (08:35)
[2019-10-09] MEDS: BUDESONIDE/FORMOTEROL 160-4.5 INHALER 6 GM INH SCH (08:37)
[2019-10-09] MEDS ORDERED: FUROSEMIDE 40 MG TABLET PO SCH (09:00)
[2019-10-09 12:19] VITALS: BP 111/65
== END 2019-10-09 16:00 | disposition home health service (06) | DRG 220 ==
LOC: N.4E 09:46 → N.CVR 09-24 12:05 → N.ICU 09-25 11:59 → N.TELES 09-25 13:19
PROC: CABGAVR (ICD-10-PCS; 2019-09-24 06:45)